=== PATIENT | female | born 1965 | race American Indian/Alaskan Native ===

== ENCOUNTER → 2017-01-22 | Outpatient (CLI) | payer OTHER ==
[~2017-01-22] MED LIST: ACET325 PO; ASPI325 PO; ASPI81CH PO; CIPR500 PO; CLIN300 PO; CRUTCH4 USE; CYCL10 PO; DICLO GEL1 EACH; DOCSEN PO; FURO100EL PO; FURO20 PO; GABA300 PO; GEMF600 PO; GLIP2.5ER PO; HYDACE5 PO; HYDACE7.5 PO; HYDMOR2 PO; IBAN2.5; IBUHYD; Lisinopril2.5 MG PO; METR500 PO; NAPR500EC PO; NITR100CA PO; OXYC5 PO; PERM5TC TOP; PIOG15 PO; POTCHL10ER PO; POTCHL20ER PO; PREG100 PO; PROM25 PO; Prilosec Otc20 MG PO; RXPROM25 PO; Senexon8.6 MG; Senna8.6 M1 PO; Vibramycin100 MG PO; WARF5 PO; [UNRECOGNIZED DRUG - REMARK]
[2017-01-22 14:34] LABS: Protein, Urine Quantitative 25.7 mg/dL (0.0-11.9)
== END ==
LOC: LAB SHORT 08:07
PROVIDERS: Internal Medicine Nephrology
DX: N18.2 Chronic kidney disease, stage 2 (mild) (principal); D63.1 Anemia in chronic kidney disease; N25.81 Secondary hyperparathyroidism of renal origin; E55.9 Vitamin D deficiency, unspecified; E78.00 Pure hypercholesterolemia, unspecified
CPT/HCPCS: 81050; 82043; 84156

== ENCOUNTER 2017-03-12 12:00 | Day surgery (SDC) | payer OTHER ==
[~2017-03-12] VITALS: Ht 175.3 cm; Wt 95.2 kg
[~2017-03-12 12:00] MED LIST changes: -GABA300 PO; -PROM25 PO
== END 2017-03-12 16:17 | disposition home or self-care (01) ==
LOC: ORSCSDS 12:00
PROVIDERS: Internal Medicine Gastroenterology
PROC: 0DB68ZX Excision of Stomach, Via Natural or Artificial Opening Endoscopic, Diagnostic (ICD-10-PCS; principal; 2017-03-12 13:45)
PROC: 0D757ZZ Dilation of Esophagus, Via Natural or Artificial Opening (ICD-10-PCS; principal; 2017-03-12 13:45)
PROC: 0DBL8ZX Excision of Transverse Colon, Via Natural or Artificial Opening Endoscopic, Diagnostic (ICD-10-PCS; principal; 2017-03-12 13:45)
PROC: 3E0H8GC Introduction of Other Therapeutic Substance into Lower GI, Via Natural or Artificial Opening Endoscopic (ICD-10-PCS; principal; 2017-03-12 13:45)
DX: Z86.010 Personal history of colon polyps (principal); D12.3 Benign neoplasm of transverse colon; R11.0 Nausea; R10.13 Epigastric pain; K29.70 Gastritis, unspecified, without bleeding; R13.14 Dysphagia, pharyngoesophageal phase; K57.30 Diverticulosis of large intestine without perforation or abscess without bleeding; E11.9 Type 2 diabetes mellitus without complications; R19.4 Change in bowel habit; Z79.899 Other long term (current) drug therapy; Z79.82 Long term (current) use of aspirin; F17.210 Nicotine dependence, cigarettes, uncomplicated
CPT/HCPCS: 82947; 87081; 88305; J1980; J2250; J7120

== ENCOUNTER 2017-05-30 15:19 | Inpatient (IN) | payer OTHER ==
[~2017-05-30] VITALS: Ht 175.3 cm; Wt 93.7 kg
[2017-05-30] MEDS ORDERED: GABA300 PO (15:28)
[2017-05-30 16:50] LABS: BASOPHILS ABSOLUTE AUTO 0.06 K/mm3 (0.00-0.23); BASOPHILS PERCENT AUTO 1 % (0-2); EOSINOPHILS ABSOLUTE AUTO 0.13 K/mm3 (0.00-0.68); EOSINOPHILS PERCENT AUTO 1 % (0-6); Hematocrit 48.3 % (33.0-51.0); Hemoglobin 15.4 g/dL (11.5-16.0); IMMATURE GRAN ABSOLUTE AUTO 0.08 K/mm3 (0.00-0.10); IMMATURE GRAN PERCENT AUTO 1 % (0-1); LYMPHOCYTES ABSOLUTE AUTO 5.61 K/mm3 (0.84-5.20); LYMPHOCYTES PERCENT AUTO 42 % (21-46); MONOCYTES ABSOLUTE AUTO 0.78 K/mm3 (0.16-1.47); MONOCYTES PERCENT AUTO 6 % (4-13); Mean Corpuscular HGB 29.2 pg (26.0-34.0); Mean Corpuscular HGB Conc 31.9 g/dL (31.5-36.5); Mean Corpuscular Volume 92 fL (80-100); Mean Platelet Volume 9.9 fL (9.1-12.4); NEUTROPHILS ABSOLUTE AUTO 6.58 K/mm3 (1.96-9.15); NEUTROPHILS PERCENT AUTO 50 % (41-73); Platelet Count 322 K/mm3 (150-400); RDW Coefficient Variation 13.8 % (11.7-14.2); Red Blood Cell Count 5.28 M/mm3 (3.80-5.20); White Blood Cell Count 13.24 K/mm3 (4.00-11.30)
[2017-05-30 17:15] LABS: Alanine Aminotransfer (ALT/SGP 28 U/L (12-78); Albumin, Blood 3.8 g/dL (3.4-5.0); Albumin/Globulin Ratio 0.8 (0.8-1.8); Alk Phos 79 U/L (50-136); Anion Gap 3 mmol/L (6-16); Aspartate Aminotrans (AST/SGOT 23 U/L (12-37); Bilirubin, Total 0.3 mg/dL (0.1-1.0); Blood Urea Nitrogen 12 mg/dL (8-24); Bun/Creatinine Ratio 18.6 (12.0-20.0); CO2, Blood 25 mmol/L (21-32); Calcium, Blood 9.2 mg/dL (8.5-10.1); Chloride, Blood 107 mmol/L (98-108); Creatinine, Blood 0.65 mg/dL (0.40-1.00); Globulin, Blood 4.7 g/dL (2.2-4.0); Glomerular Filtration Rate >60 (60-); Glucose, Blood 115 mg/dL (70-99); Potassium, Blood 3.6 mmol/L (3.5-5.5); Sodium, Blood 135 mmol/L (136-145); Total Protein, Blood 8.5 g/dL (6.4-8.2)
[2017-05-30 22:28] LABS: Source, Urine Clean Catch
[2017-05-30 22:34] LABS: Bilirubin, Urine Neg (Neg); Blood, Urine 2+ (Neg); Glucose Qualitative, Urine Neg (Neg); Ketones, Urine Neg (Neg); Leukocyte Esterase, Urine Neg (Neg); Nitrite, Urine Neg (Neg); Protein, Urine 3+ (Neg); Specific Gravity, Urine 1.015 (1.003-1.022); Urobilinogen, Urine NORM (Normal)
[2017-05-30 22:39] LABS: Appearance, Urine Clear (Clear); Color, Urine Yellow (P-Yellow); Red Blood Cells, Urine 0-2 /hpf (0-2); White Blood Cells, Urine 0-2 /hpf (0-5)
[2017-05-30 22:40] LABS: Bacteria Mod /hpf; Squamous Epithelial Cells Mod /hpf (Few)
[2017-05-30] MEDS ORDERED: CYCL10 PO (23:58)
[2017-05-31 04:49] LABS: BASOPHILS ABSOLUTE AUTO 0.06 K/mm3 (0.00-0.23); BASOPHILS PERCENT AUTO 1 % (0-2); EOSINOPHILS ABSOLUTE AUTO 0.14 K/mm3 (0.00-0.68); EOSINOPHILS PERCENT AUTO 1 % (0-6); Hematocrit 44.6 % (33.0-51.0); Hemoglobin 13.9 g/dL (11.5-16.0); IMMATURE GRAN ABSOLUTE AUTO 0.03 K/mm3 (0.00-0.10); IMMATURE GRAN PERCENT AUTO 0 % (0-1); LYMPHOCYTES ABSOLUTE AUTO 4.59 K/mm3 (0.84-5.20); LYMPHOCYTES PERCENT AUTO 41 % (21-46); MONOCYTES PERCENT AUTO 6 % (4-13); Mean Corpuscular HGB 29.3 pg (26.0-34.0); Mean Corpuscular HGB Conc 31.2 g/dL (31.5-36.5); Mean Corpuscular Volume 94 fL (80-100); Mean Platelet Volume 9.7 fL (9.1-12.4); NEUTROPHILS PERCENT AUTO 51 % (41-73); Platelet Count 289 K/mm3 (150-400); RDW Coefficient Variation 13.8 % (11.7-14.2); RDW Standard Deviation 47.8 fL (35.1-46.3); Red Blood Cell Count 4.74 M/mm3 (3.80-5.20); White Blood Cell Count 11.32 K/mm3 (4.00-11.30)
[2017-05-31 05:08] LABS: Alanine Aminotransfer (ALT/SGP 30 U/L (12-78); Albumin, Blood 3.2 g/dL (3.4-5.0); Albumin/Globulin Ratio 0.7 (0.8-1.8); Alk Phos 69 U/L (50-136); Anion Gap 5 mmol/L (6-16); Aspartate Aminotrans (AST/SGOT 18 U/L (12-37); Bilirubin, Total 0.3 mg/dL (0.1-1.0); Blood Urea Nitrogen 11 mg/dL (8-24); Bun/Creatinine Ratio 17.7 (12.0-20.0); CO2, Blood 29 mmol/L (21-32); Calcium, Blood 8.4 mg/dL (8.5-10.1); Chloride, Blood 106 mmol/L (98-108); Creatinine, Blood 0.62 mg/dL (0.40-1.00); Globulin, Blood 4.4 g/dL (2.2-4.0); Glomerular Filtration Rate >60 (60-); Glucose, Blood 120 mg/dL (70-99); Potassium, Blood 3.7 mmol/L (3.5-5.5); Sodium, Blood 140 mmol/L (136-145); Total Protein, Blood 7.6 g/dL (6.4-8.2); Triglycerides 258 mg/dL (30-160)
[2017-06-01 05:00] LABS: BASOPHILS ABSOLUTE AUTO 0.06 K/mm3 (0.00-0.23); BASOPHILS PERCENT AUTO 1 % (0-2); EOSINOPHILS PERCENT AUTO 1 % (0-6); Hematocrit 42.1 % (33.0-51.0); Hemoglobin 13.3 g/dL (11.5-16.0); IMMATURE GRAN ABSOLUTE AUTO 0.05 K/mm3 (0.00-0.10); IMMATURE GRAN PERCENT AUTO 1 % (0-1); LYMPHOCYTES ABSOLUTE AUTO 3.56 K/mm3 (0.84-5.20); LYMPHOCYTES PERCENT AUTO 36 % (21-46); MONOCYTES ABSOLUTE AUTO 0.62 K/mm3 (0.16-1.47); MONOCYTES PERCENT AUTO 6 % (4-13); Mean Corpuscular HGB 29.6 pg (26.0-34.0); Mean Corpuscular HGB Conc 31.6 g/dL (31.5-36.5); Mean Corpuscular Volume 94 fL (80-100); Mean Platelet Volume 9.7 fL (9.1-12.4); NEUTROPHILS ABSOLUTE AUTO 5.56 K/mm3 (1.96-9.15); NEUTROPHILS PERCENT AUTO 56 % (41-73); Platelet Count 277 K/mm3 (150-400); RDW Standard Deviation 48.2 fL (35.1-46.3); White Blood Cell Count 9.95 K/mm3 (4.00-11.30)
[2017-06-01 05:39] LABS: Alanine Aminotransfer (ALT/SGP 28 U/L (12-78); Albumin, Blood 3.1 g/dL (3.4-5.0); Albumin/Globulin Ratio 0.8 (0.8-1.8); Alk Phos 62 U/L (50-136); Anion Gap 6 mmol/L (6-16); Aspartate Aminotrans (AST/SGOT 20 U/L (12-37); Bilirubin, Total 0.4 mg/dL (0.1-1.0); Blood Urea Nitrogen 11 mg/dL (8-24); Bun/Creatinine Ratio 19.2 (12.0-20.0); CO2, Blood 28 mmol/L (21-32); Calcium, Blood 8.1 mg/dL (8.5-10.1); Chloride, Blood 105 mmol/L (98-108); Creatinine, Blood 0.57 mg/dL (0.40-1.00); Glomerular Filtration Rate >60 (60-); Glucose, Blood 124 mg/dL (70-99); Potassium, Blood 3.5 mmol/L (3.5-5.5); Sodium, Blood 139 mmol/L (136-145); Total Protein, Blood 7.1 g/dL (6.4-8.2)
[2017-06-01] MEDS ORDERED: PROM25 PO (14:28)
== END 2017-06-01 15:14 | disposition home or self-care (01) | DRG 440 ==
LOC: ER 15:19 → ERHOLD 21:00 → MEDS 23:20
PROVIDERS: Emergency Medicine; Family Medicine; Internal Medicine
DX: K85.90 Acute pancreatitis without necrosis or infection, unspecified (principal); E11.9 Type 2 diabetes mellitus without complications; K74.60 Unspecified cirrhosis of liver; M81.0 Age-related osteoporosis without current pathological fracture; K29.80 Duodenitis without bleeding; K21.9 Gastro-esophageal reflux disease without esophagitis; M79.7 Fibromyalgia; E78.5 Hyperlipidemia, unspecified; G89.29 Other chronic pain; M54.9 Dorsalgia, unspecified; E66.9 Obesity, unspecified; Z68.30 Body mass index [BMI] 30.0-30.9, adult; F17.200 Nicotine dependence, unspecified, uncomplicated; Z88.2 Allergy status to sulfonamides; Z88.8 Allergy status to other drugs, medicaments and biological substances; Z91.040 Latex allergy status; Z91.013 Allergy to seafood; Z79.82 Long term (current) use of aspirin; Z79.899 Other long term (current) drug therapy; Z86.718 Personal history of other venous thrombosis and embolism
CPT/HCPCS: 36415; 76705; 80053; 81001; 82947; 83690; 84478; 85025; 86140; 87086; C9113; J1170; J1650; J2405; J3010; J7030

== ENCOUNTER → 2018-03-24 | Outpatient (CLI) | payer OTHER ==
[~2018-03-24] MED LIST changes: +GABA300 PO; +PROM25 PO
[2018-03-24 20:12] LABS: Creatinine, Urine Random 67.3 mg/dL (27.00-270.00)
[2018-03-24 20:14] LABS: Microalb/Creat Ratio UR, Rand 361.07 mg/g (0.000-30.000)
== END ==
LOC: LAB SHORT 12:47 → LAB 12:47
PROVIDERS: Nurse Practitioner Family
DX: E11.51 Type 2 diabetes mellitus with diabetic peripheral angiopathy without gangrene (principal); E55.9 Vitamin D deficiency, unspecified
CPT/HCPCS: 82043; 82570

== ENCOUNTER 2019-01-24 10:45 | Emergency (ER) | payer OTHER ==
[~2019-01-24] VITALS: Ht 175.3 cm; Wt 88.0 kg
[2019-01-24] MEDS ORDERED: NAPR500 (11:08)
[2019-01-24] MEDS ORDERED: Ultram50 MG PO (12:56)
== END 2019-01-24 13:18 | disposition home or self-care (01) ==
LOC: ER 10:45
DX: M18.11 Unilateral primary osteoarthritis of first carpometacarpal joint, right hand (principal); E11.9 Type 2 diabetes mellitus without complications; F17.210 Nicotine dependence, cigarettes, uncomplicated; Z88.8 Allergy status to other drugs, medicaments and biological substances; Z91.09 Other allergy status, other than to drugs and biological substances; Z91.040 Latex allergy status; Z88.2 Allergy status to sulfonamides; Z91.013 Allergy to seafood; Z79.82 Long term (current) use of aspirin; Z86.718 Personal history of other venous thrombosis and embolism
CPT/HCPCS: 73120; 99283-25

== ENCOUNTER 2019-10-25 19:51 | Emergency (ER) | payer OTHER ==
[~2019-10-25] VITALS: Ht 175.3 cm; Wt 84.8 kg
[~2019-10-25 19:51] MED LIST changes: +NAPR500; +Ultram50 MG PO
[2019-10-26] MEDS ORDERED: Vibramycin100 MG PO (01:06)
[2019-10-26] MEDS ORDERED: Norco 5-325 Ta1 EACH PO (01:06)
[2019-10-26] MEDS ORDERED: ONDA4ODT MM (20:15)
== END 2019-10-26 01:26 | disposition home or self-care (01) ==
LOC: ER 19:51
DX: L02.411 Cutaneous abscess of right axilla (principal); M25.562 Pain in left knee; Z88.8 Allergy status to other drugs, medicaments and biological substances; Z91.09 Other allergy status, other than to drugs and biological substances; Z91.040 Latex allergy status; Z91.013 Allergy to seafood; Z79.82 Long term (current) use of aspirin; E11.9 Type 2 diabetes mellitus without complications; Z86.718 Personal history of other venous thrombosis and embolism; F17.210 Nicotine dependence, cigarettes, uncomplicated
CPT/HCPCS: 10060; 73562-LT; 99283-25; A9270

== ENCOUNTER 2019-10-26 19:00 | Emergency (ER) | payer OTHER ==
[~2019-10-26] VITALS: Ht 175.3 cm; Wt 90.3 kg
[~2019-10-26 19:00] MED LIST changes: +Norco 5-325 Ta1 EACH PO
[2019-10-26] MEDS ORDERED: ONDA4ODT MM (20:15)
== END 2019-10-26 20:20 | disposition home or self-care (01) ==
LOC: ER 19:00
DX: Z48.01 Encounter for change or removal of surgical wound dressing (principal); L02.411 Cutaneous abscess of right axilla; L03.111 Cellulitis of right axilla; E11.9 Type 2 diabetes mellitus without complications; F17.210 Nicotine dependence, cigarettes, uncomplicated; Z88.8 Allergy status to other drugs, medicaments and biological substances; Z91.041 Radiographic dye allergy status; Z91.040 Latex allergy status; Z88.2 Allergy status to sulfonamides; Z91.013 Allergy to seafood; Z88.6 Allergy status to analgesic agent; Z79.82 Long term (current) use of aspirin; Z86.718 Personal history of other venous thrombosis and embolism; Z79.899 Other long term (current) drug therapy
CPT/HCPCS: 99282; A9270-GY

== ENCOUNTER 2019-11-15 13:33 | Emergency (ER) | payer OTHER ==
[~2019-11-15] VITALS: Ht 175.3 cm; Wt 90.7 kg
[~2019-11-15 13:33] MED LIST changes: +ONDA4ODT MM
[2019-11-15] MEDS ORDERED: HYDR1TAB94 PO (15:50)
== END 2019-11-15 16:03 | disposition home or self-care (01) ==
LOC: ER 13:33
DX: M25.562 Pain in left knee (principal); F17.210 Nicotine dependence, cigarettes, uncomplicated; E11.9 Type 2 diabetes mellitus without complications; Z86.718 Personal history of other venous thrombosis and embolism; Z88.8 Allergy status to other drugs, medicaments and biological substances; Z91.041 Radiographic dye allergy status; Z91.040 Latex allergy status; Z88.2 Allergy status to sulfonamides; Z91.013 Allergy to seafood; Z79.82 Long term (current) use of aspirin; Z88.5 Allergy status to narcotic agent; Z79.899 Other long term (current) drug therapy
CPT/HCPCS: 29505; 99283-25

== ENCOUNTER 2020-09-08 10:08 | Day surgery (SDC) | payer OTHER ==
[~2020-09-08] VITALS: Ht 175.3 cm; Wt 88.1 kg
[~2020-09-08 10:08] MED LIST changes: +HYDR1TAB94 PO
[2020-09-08] MEDS ORDERED: IBUP400 PO (10:38)
[2020-09-08] MEDS ORDERED: OMEP20ER PO (10:41)
[2020-09-08] MEDS ORDERED: GLIP10ER PO (10:54)
--- NOTE | 2020-09-08 10:57 | NUR ---
Ambulatory in Day SurgeryPre-Op teaching done. Pt verbalizes understanding. Patient States Post-Procedure ride home has been arranged. History, Chart, Medications and Allergies reviewed before start of procedure.
[2020-09-08] MEDS ORDERED: PANT40 (11:22)
[2020-09-08] MEDS ORDERED: GLIP5ER PO (11:23)
--- NOTE | 2020-09-08 11:56 | NUR ---
09/08/20 1156 Marianela Donohue MONITOR INTACT WITH CONTINUOUS PULSE OXIMETRY AND INTERMITTENT BP, PRIOR TO START OF SEDATION.
--- NOTE | 2020-09-08 12:28 | NUR ---
TOLERATING PO FLUIDS.
--- NOTE | 2020-09-08 12:29 | NUR ---
Discharge instructions reviewed with patient. Patient verbalizes understanding. Copy given to patient to take home. Patient States Post-Procedure ride home has been arranged with her friend.
--- NOTE | 2020-09-08 12:40 | NUR ---
Patient up to Ambulate independently. Gait steady. Discharged via wheelchair to private car for ride home WITH FAMILY GIVING PT RIDE HOME
== END 2020-09-08 12:40 | disposition home or self-care (01) ==
LOC: ORSCMMR 10:08 → ORD 11:45 → ORSCMMR 12:40
PROVIDERS: Internal Medicine Gastroenterology
PROC: 0DJ08ZZ Inspection of Upper Intestinal Tract, Via Natural or Artificial Opening Endoscopic (ICD-10-PCS; principal; 2020-09-08 11:45)
DX: R10.13 Epigastric pain (principal); R10.10 Upper abdominal pain, unspecified; K59.00 Constipation, unspecified; G47.33 Obstructive sleep apnea (adult) (pediatric); F41.8 Other specified anxiety disorders; J44.9 Chronic obstructive pulmonary disease, unspecified; F17.210 Nicotine dependence, cigarettes, uncomplicated
CPT/HCPCS: 82947; J7120

== ENCOUNTER → 2023-11-26 | Outpatient (CLI) | payer OTHER ==
[~2023-11-26] MED LIST changes: +GLIP10ER PO; +GLIP5ER PO; +IBUP400 PO; +OMEP20ER PO; +PANT40
[2023-11-26 20:38] LABS: Creatinine, Urine Random 58.9 mg/dL (27.00-270.00); Microalb/Creat Ratio UR, Rand 224.109 mg/g (0.000-30.000)
== END ==
LOC: LAB SHORT 18:33 → LAB 18:33
PROVIDERS: Nurse Practitioner Family
DX: E11.9 Type 2 diabetes mellitus without complications (principal)
CPT/HCPCS: 82043; 82570

== ENCOUNTER 2024-11-11 15:28 | Inpatient (IN) | payer OTHER ==
[2024-11-11] VITALS (7 sets, daily range): BP systolic 82–98; BP diastolic 38–57
[~2024-11-11] VITALS: Ht 175.3 cm; Wt 82.3 kg
[2024-11-11 16:05] LABS: BASOPHILS ABSOLUTE AUTO 0.07 K/mm3 (0.00-0.23); BASOPHILS PERCENT AUTO 0 % (0-2); EOSINOPHILS ABSOLUTE AUTO 0.14 K/mm3 (0.00-0.68); EOSINOPHILS PERCENT AUTO 1 % (0-6); Hematocrit 34.0 % (33.0-51.0); Hemoglobin 11.3 g/dL (11.5-16.0); IMMATURE GRAN ABSOLUTE AUTO 0.20 K/mm3 (0.00-0.10); IMMATURE GRAN PERCENT AUTO 1 % (0-1); LYMPHOCYTES ABSOLUTE AUTO 3.35 K/mm3 (0.84-5.20); LYMPHOCYTES PERCENT AUTO 17 % (21-46); MONOCYTES ABSOLUTE AUTO 1.86 K/mm3 (0.16-1.47); MONOCYTES PERCENT AUTO 10 % (4-13); Mean Corpuscular HGB Conc 33.2 g/dL (31.5-36.5); Mean Corpuscular Volume 89 fL (80-100); NEUTROPHILS ABSOLUTE AUTO 13.92 K/mm3 (1.96-9.15); NEUTROPHILS PERCENT AUTO 71 % (41-73); NRBC ABSOLUTE 0.00 K/mm3 (0.00-0.02); NRBC Auto 0.0 /100 WBC (0.0-0.2); Platelet Count 214 K/mm3 (150-400); RDW Coefficient Variation 13.5 % (11.7-14.2); RDW Standard Deviation 44.7 fL (35.1-46.3)
[2024-11-11 16:30] LABS: Alanine Aminotransfer (ALT/SGP 27.0 U/L (12-78); Albumin, Blood 2.6 g/dL (3.4-5.0); Albumin/Globulin Ratio 0.7 (0.8-1.8); Anion Gap 7.0 mmol/L (3-11); Aspartate Aminotrans (AST/SGOT 31.0 U/L (12-37); Bilirubin, Total 0.6 mg/dL (0.1-1.0); Blood Urea Nitrogen 14.0 mg/dL (8-24); CO2, Blood 27.0 mmol/L (21-32); Calcium, Blood 8.0 mg/dL (8.5-10.1); Chloride, Blood 103.0 mmol/L (98-108); Creatinine, Blood 0.72 mg/dL (0.40-1.00); Globulin, Blood 3.8 g/dL (2.2-4.0); Glucose, Blood 152.0 mg/dL (70-99); Potassium, Blood 3.9 mmol/L (3.5-5.5); Sodium, Blood 133.0 mmol/L (136-145); Total Protein, Blood 6.4 g/dL (6.4-8.2)
[2024-11-11] MEDS ORDERED: FentaNYL Citrate 50 MCG/ML 2 ML Injection IV PRN ×4 (17:00→22:55)
[2024-11-11] MEDS ORDERED: Vancomycin (Pharmacy Consult) IV PRN (18:20)
[2024-11-11] MEDS ORDERED: NS 1,000 ML IV SCH (18:25)
[2024-11-11] MEDS ORDERED: Piperacillin/Tazobactam Sod 4.5 GM in NS 100 ML IV ONE (18:45)
[2024-11-11] MEDS ORDERED: Clindamycin 600mg in D5W 50 ML IV ONE (18:45)
[2024-11-11] MEDS ORDERED: HYDROmorphone HCl/Pf 1MG SYR IV ONE (19:10)
[2024-11-11] MEDS ORDERED: FentaNYL Citrate 50 MCG/ML 2 ML Injection ONE (22:16)
[2024-11-11] MEDS ORDERED: Dexamethasone Sod Phos 10 MG/ML 1ML VIAL ONE (22:21)
[2024-11-11] MEDS ORDERED: Ondansetron HCl 2 MG / ML 2ML Vial ONE (22:21)
[2024-11-11] MEDS ORDERED: Metoclopramide HCl 5MG / ML 2ML Vial ONE (22:21)
[2024-11-11] MEDS ORDERED: Albuterol 2.5 MG/3 ML VIAL INH PRN (22:30)
[2024-11-11] MEDS ORDERED: ePHEDrine Sulfate 50 MG/ML 1ML Injection IV PRN (22:30)
[2024-11-11] MEDS ORDERED: HYDROmorphone HCl/Pf 1MG SYR IV PRN ×2 (22:30)
[2024-11-11] MEDS ORDERED: Ondansetron HCl 2 MG / ML 2ML Vial IV PRN ×2 (22:30→22:55)
[2024-11-11] MEDS ORDERED: Bupivacaine 0.5% W/EPI 1:200000 SDV 30 ML Vial ONE (22:33)
[2024-11-11] MEDS ORDERED: HYDROmorphone HCl/Pf 1MG SYR ONE (22:40)
[2024-11-11] MEDS ORDERED: Sodium Hypochlorite 480 ML BTL (0.25%) ONE (22:44)
[2024-11-11] MEDS ORDERED: FLU VACC TS2025-26(6MOS UP)/PF 45 MCG/0.5 ML SYRINGE IM SCH (22:55)
[2024-11-11] MEDS ORDERED: NS 1,000 ML IV ONE (22:55)
[2024-11-11] MEDS ORDERED: Vancomycin (Pharmacy Consult) IV SCH (22:55)
[2024-11-12] VITALS (9 sets, daily range): BP systolic 92–129; BP diastolic 48–66
[2024-11-12] MEDS ORDERED: Piperacillin/Tazobactam Sod 4.5 GM in NS 100 ML IV SCH
[2024-11-12] MEDS ORDERED: NAPR500 PO (00:28)
[2024-11-12] MEDS ORDERED: OMEP20ER PO (00:30)
[2024-11-12] MEDS ORDERED: ATOR10 PO (00:31)
[2024-11-12] MEDS ORDERED: DERMACINRX FOL1 EAC2 PO (00:32)
[2024-11-12] MEDS ORDERED: FURO20 PO (00:35)
[2024-11-12] MEDS ORDERED: Norco 7.5-3251 EACH PO (00:36)
[2024-11-12] MEDS ORDERED: TIZA4 PO (00:37)
[2024-11-12 05:12] LABS: BASOPHILS ABSOLUTE AUTO 0.06 K/mm3 (0.00-0.23); BASOPHILS PERCENT AUTO 0 % (0-2); EOSINOPHILS ABSOLUTE AUTO 0.02 K/mm3 (0.00-0.68); EOSINOPHILS PERCENT AUTO 0 % (0-6); Hematocrit 35.1 % (33.0-51.0); Hemoglobin 11.2 g/dL (11.5-16.0); IMMATURE GRAN ABSOLUTE AUTO 0.17 K/mm3 (0.00-0.10); IMMATURE GRAN PERCENT AUTO 1 % (0-1); LYMPHOCYTES ABSOLUTE AUTO 1.48 K/mm3 (0.84-5.20); LYMPHOCYTES PERCENT AUTO 10 % (21-46); MONOCYTES ABSOLUTE AUTO 0.49 K/mm3 (0.16-1.47); MONOCYTES PERCENT AUTO 3 % (4-13); Mean Corpuscular HGB Conc 31.9 g/dL (31.5-36.5); Mean Corpuscular Volume 92 fL (80-100); NEUTROPHILS ABSOLUTE AUTO 12.39 K/mm3 (1.96-9.15); NEUTROPHILS PERCENT AUTO 85 % (41-73); NRBC ABSOLUTE 0.00 K/mm3 (0.00-0.02); NRBC Auto 0.0 /100 WBC (0.0-0.2); Platelet Count 210 K/mm3 (150-400); RDW Coefficient Variation 13.5 % (11.7-14.2); RDW Standard Deviation 46.3 fL (35.1-46.3)
[2024-11-12 05:37] LABS: Alanine Aminotransfer (ALT/SGP 31.0 U/L (12-78); Albumin, Blood 2.4 g/dL (3.4-5.0); Albumin/Globulin Ratio 0.6 (0.8-1.8); Anion Gap 7.0 mmol/L (3-11); Aspartate Aminotrans (AST/SGOT 20.0 U/L (12-37); Bilirubin, Total 0.6 mg/dL (0.1-1.0); Blood Urea Nitrogen 13.0 mg/dL (8-24); CO2, Blood 26.0 mmol/L (21-32); Calcium, Blood 7.8 mg/dL (8.5-10.1); Chloride, Blood 108.0 mmol/L (98-108); Creatinine, Blood 0.85 mg/dL (0.40-1.00); Globulin, Blood 4.0 g/dL (2.2-4.0); Glucose, Blood 255.0 mg/dL (70-99); Potassium, Blood 4.2 mmol/L (3.5-5.5); Sodium, Blood 137.0 mmol/L (136-145); Total Protein, Blood 6.4 g/dL (6.4-8.2)
[2024-11-12] MEDS ORDERED: Insulin Human Lispro 100 Units/ML 3ML Syringe SC SCH (07:30)
--- NOTE | 2024-11-12 07:30 | NUR ---
SHIFT SUMMARY POD 1-I&D R LABIA. RESPONDS TO VERBAL STIMULI, ANSWERS QUESTIONS APPROPRIATE & THEN FALLS BACK ASLEEP. R LABIA VERY FIRM, RED, W/GENET DRAIN IN PLACE. CHANGED GAUZE & JHONY PAD THIS AM @0645, MOD SATURATED W/BROWNISH SEROUS DRAINAGE. REPORTS 8/10 PAIN BUT THEN FALLS ASLEEP & SLEPT SOUNDLY T/O NIGHT. PT HAD DIFFICULTY MAINTAINING SATS T/O NIGHT. CAME TO FLOOR ON 4L O2, PT DENIES WEARING O2 @HOME, HAS HX ABY & STATES SHE DOESNT WEAR A CPAP & DOESNT WANT TO WEAR ONE HERE. INCREASED O2 TO 5L & PT SPO2 STILL 85% ON 5L, INFORMED RT & THEY PLACED PT ON 11L W/OXIMASK. SPO2 >95% THEREFORE TITRATED TO 3L ON OXIMASK, PT DOES DESAT TO 84-86% WHEN SHE REMOVES MASK. PT DENIES DYSPNEA. E/U RESP. BS COARSE IN BASES & EXP WHEEZES NOTED IN UPPER LOBES. REST OF VSS. TELE NSR HR 70'S. DE LEON PATENT & DRAINING ORANGE URINE. CALL LIGHT IN REACH.
[2024-11-12] MEDS ORDERED: NS 250 ML IV PRN (15:00)
--- NOTE | 2024-11-12 18:40 | NUR ---
SUMMARY: POD1 I&D R LABIA. A/O, VSS. PT MORE AWAKE TONIGHT. TELE STABLE. GAUZE AT JHONY AREA CHANGED X1. SMALL AMT DRAINAGE, SITE IS PINK AND FIRM. PT UP TO COMMODE SBA FOR BM. MEDICATED PER EMAR FOR PAIN. ANTBIOTICS INFUSED. NO ACUTE CONCERNS.
[2024-11-13] VITALS (16 sets, daily range): BP systolic 110–145; BP diastolic 46–123
--- NOTE | 2024-11-13 05:30 | NUR ---
SHIFT SUMMARY PT S/P RIGHT LABIAL I&D. PT TO HAVE A SECOND I&D TODAY. MINIMAL DRAINAGE. PAIN MANAGED PER EMAR. IV ANTIBIOTICS PER ORDERS. PT NPO SINCE MIDNIGHT. PLAN OF CARE REMAINS UNCHANGED. BED IN LOWEST POSITION, CALL LIGHT WITHIN REACH.
[2024-11-13 06:15] LABS: BASOPHILS ABSOLUTE AUTO 0.06 K/mm3 (0.00-0.23); BASOPHILS PERCENT AUTO 0 % (0-2); EOSINOPHILS ABSOLUTE AUTO 0.05 K/mm3 (0.00-0.68); EOSINOPHILS PERCENT AUTO 0 % (0-6); Hematocrit 35.0 % (33.0-51.0); Hemoglobin 11.5 g/dL (11.5-16.0); IMMATURE GRAN ABSOLUTE AUTO 0.15 K/mm3 (0.00-0.10); IMMATURE GRAN PERCENT AUTO 1 % (0-1); LYMPHOCYTES ABSOLUTE AUTO 3.79 K/mm3 (0.84-5.20); LYMPHOCYTES PERCENT AUTO 20 % (21-46); MONOCYTES ABSOLUTE AUTO 0.79 K/mm3 (0.16-1.47); MONOCYTES PERCENT AUTO 4 % (4-13); Mean Corpuscular HGB Conc 32.9 g/dL (31.5-36.5); Mean Corpuscular Volume 90 fL (80-100); NEUTROPHILS ABSOLUTE AUTO 14.44 K/mm3 (1.96-9.15); NEUTROPHILS PERCENT AUTO 75 % (41-73); NRBC ABSOLUTE 0.00 K/mm3 (0.00-0.02); NRBC Auto 0.0 /100 WBC (0.0-0.2); Platelet Count 262 K/mm3 (150-400); RDW Coefficient Variation 13.7 % (11.7-14.2); RDW Standard Deviation 45.1 fL (35.1-46.3)
--- NOTE | 2024-11-13 06:30 | NUR ---
BRADYCARDIA CALL FROM PIN DRAFTING MACHINE TENDER THIS AM THAT PT BRADYCARDIC HR RANGING 37-40. PT RESTING, WITH EYES CLOSED CHEST RISE AND FALL. DR. KENNEDY CALLED AND NOTIFIED. HE GAVE NO ORDERS AT THIS TIME. STATES TO NOTIFY DAYSALFT RN FOR FOLLOW UP.
[2024-11-13 07:17] LABS: Anion Gap 8.0 mmol/L (3-11); Blood Urea Nitrogen 12.0 mg/dL (8-24); CO2, Blood 24.0 mmol/L (21-32); Calcium, Blood 8.7 mg/dL (8.5-10.1); Chloride, Blood 111.0 mmol/L (98-108); Creatinine, Blood 0.76 mg/dL (0.40-1.00); Glucose, Blood 165.0 mg/dL (70-99); Potassium, Blood 3.7 mmol/L (3.5-5.5); Sodium, Blood 139.0 mmol/L (136-145)
--- NOTE | 2024-11-13 07:22 | NUR ---
BRADYCARDIA DAYSHIFT ION SUE MADE AWARE OF BRADYCARDIA AND WILL FOLLOW UP.
[2024-11-13] MEDS ORDERED: FentaNYL Citrate 50 MCG/ML 2 ML Injection ONE (08:29)
--- NOTE | 2024-11-13 08:34 | NUR ---
PT TO OR VIA STRETCHER
[2024-11-13] MEDS ORDERED: Albuterol 2.5 MG/3 ML VIAL INH PRN (08:40)
[2024-11-13] MEDS ORDERED: FentaNYL Citrate 50 MCG/ML 2 ML Injection IV PRN ×2 (08:40)
[2024-11-13] MEDS ORDERED: Midazolam HCl 1MG / ML 2ML Vial ONE (08:43)
[2024-11-13] MEDS ORDERED: HYDROmorphone HCl/Pf 1MG SYR IV PRN (08:45)
[2024-11-13] MEDS ORDERED: Ondansetron HCl 2 MG / ML 2ML Vial IV PRN (08:45)
--- NOTE | 2024-11-13 08:49 | NUR ---
PT TO OR AT ABOUT 0830
[2024-11-13] MEDS ORDERED: Ondansetron HCl 2 MG / ML 2ML Vial ONE (09:02)
[2024-11-13] MEDS ORDERED: ePHEDrine Sulfate 50 MG/ML 1ML Injection ONE (09:04)
[2024-11-13] MEDS ORDERED: Bupivacaine 0.5% W/EPI 1:200000 SDV 30 ML Vial ONE (09:08)
--- NOTE | 2024-11-13 09:36 | NUR ---
11/13/24 0936 Norma Connolly PT HAD NEW IV 20G STARTED TO LEFT FA AFTER INDUCTION. WOUND VAC PLACED TO RIGHT LABIA.
[2024-11-13] MEDS ORDERED: HYDROmorphone HCl/Pf 1MG SYR ONE (10:08)
--- NOTE | 2024-11-13 10:42 | NUR ---
pt to room 211. wound vac in place r labia. chang catheter in place draining clear yellow urine. wound vac with leak. post op vs started. plan for medicating for pain, then attempting to solve leak. will continue to monitor.
--- NOTE | 2024-11-13 13:45 | NUR ---
PT HAVING LOOSE STOOLS. UP TO BSC WITH TWO ASSIST TO MANAGE EQUIPMENT. ATTENDS PLACED. LABIAL WOUND VAC DRESSING STILL INTACT WITH LEAK PRESENT. PLAN TO ATTEMPT TO FIX WHEN TITLE INSURANCE EXAMINER IS BACK FROM LUNCH. PT BACK TO BED. WILL CONTINUE TO MONITOR.
--- NOTE | 2024-11-13 14:42 | NUR ---
AFTER MANIPULATION OF WOUND VAC LABIAL DRESSING BY SPORTS CENTRE MANAGER HALEY AND MYSELF, DRESSING FULLY COMPRESSED, DELIVERING THERAPY, AND NOT ALARMING. WILL CONTINUE TO MONITOR.
[2024-11-13 14:56] LABS: Vancomycin, Trough 18.9 ug/mL (5.0-10.0)
[2024-11-14 03:30] VITALS: BP 125/60
[2024-11-14 04:36] LABS: BASOPHILS ABSOLUTE AUTO 0.09 K/mm3 (0.00-0.23); BASOPHILS PERCENT AUTO 1 % (0-2); EOSINOPHILS ABSOLUTE AUTO 0.27 K/mm3 (0.00-0.68); EOSINOPHILS PERCENT AUTO 2 % (0-6); Hematocrit 33.5 % (33.0-51.0); Hemoglobin 11.0 g/dL (11.5-16.0); IMMATURE GRAN ABSOLUTE AUTO 0.17 K/mm3 (0.00-0.10); IMMATURE GRAN PERCENT AUTO 1 % (0-1); LYMPHOCYTES ABSOLUTE AUTO 4.03 K/mm3 (0.84-5.20); LYMPHOCYTES PERCENT AUTO 33 % (21-46); MONOCYTES ABSOLUTE AUTO 0.68 K/mm3 (0.16-1.47); MONOCYTES PERCENT AUTO 6 % (4-13); Mean Corpuscular HGB Conc 32.8 g/dL (31.5-36.5); Mean Corpuscular Volume 89 fL (80-100); NEUTROPHILS ABSOLUTE AUTO 7.00 K/mm3 (1.96-9.15); NEUTROPHILS PERCENT AUTO 57 % (41-73); NRBC ABSOLUTE 0.00 K/mm3 (0.00-0.02); NRBC Auto 0.0 /100 WBC (0.0-0.2); Platelet Count 250 K/mm3 (150-400); RDW Coefficient Variation 13.5 % (11.7-14.2); RDW Standard Deviation 44.5 fL (35.1-46.3)
[2024-11-14 05:09] LABS: Anion Gap 8.0 mmol/L (3-11); Blood Urea Nitrogen 15.0 mg/dL (8-24); CO2, Blood 26.0 mmol/L (21-32); Calcium, Blood 8.3 mg/dL (8.5-10.1); Chloride, Blood 110.0 mmol/L (98-108); Creatinine, Blood 0.81 mg/dL (0.40-1.00); Glucose, Blood 154.0 mg/dL (70-99); Potassium, Blood 3.6 mmol/L (3.5-5.5); Sodium, Blood 140.0 mmol/L (136-145)
[2024-11-14 07:18] VITALS: BP 136/59
--- NOTE | 2024-11-14 07:49 | NUR ---
SHIFT SUMMARY AOX4. POD 1-I&D R LABIA & WOUND VAC PLACED. SCANT AMOUNT SANGUINOUS DRAINAGE IN WOUND VAC NOTED. PT REPORTS 6/10 PAIN TO JHONY AREA, PAIN MANAGED WELL W/2MG PO DILAUDID. LABIA & GROIN NOTED TO BE VISUALLY SWOLLEN, TENDER TO TOUCH, RED. NOTED NEW REDNESS FROM PELVIS AREA TO ANTERIOR HIP, OUTLINED W/SKIN MARKER & HASNT GONE OUTSIDE JUAN. NO LOOSE BM THIS SHIFT. DE LEON PATENT & DRAINING CLEAR YELLOW URINE. VSS. SPO2 >90% ON 3L O2. TELE NSR @75. CALL LIGHT IN REACH.
--- NOTE | 2024-11-14 08:58 | NUR ---
STOOL SAMPLE SENT PER ORDERS.
[2024-11-14 10:55] LABS: Campylobacter Sp Not Detected (NOT DETECT); E. Coli O157 Not Detected (NOT DETECT); Enteroaggregative E. coli-EAEC Not Detected (NOT DETECT); Enteropathogenic E. coli-EPEC Not Detected (NOT DETECT); Enterotoxigenic E. coli-ETEC Not Detected (NOT DETECT); Salmonella Sp Not Detected (NOT DETECT); Shiga Toxin-prod E. coli-STEC Not Detected (NOT DETECT); Shigella/Enteroin E. coli-EIEC Not Detected (NOT DETECT); Vibrio Sp Not Detected (NOT DETECT)
--- NOTE | 2024-11-14 14:21 | NUR ---
DISCHARGE INSTRUCTION REVIEWED. STATED UNDERSTANDING. IV DC'D INTACT. DISCHARGED TO POV VIA W/C.
[2024-11-14 16:24] VITALS: BP 149/64
[2024-11-14 19:38] VITALS: BP 142/53
[2024-11-14] MEDS ORDERED: Insulin Glargine 100 Unit/ML 3 ML SYR SC SCH (21:00)
--- NOTE | 2024-11-15 04:49 | NUR ---
SHIFT SUMMARY NO ACUTE EVENTS OVERNIGHT. PT REMAINS ON 3L O2 VIA NC OVERNIGHT. DE LEON DRAINING TO COLLECTION BAG. WOUND VAC TO LABIA WOUND REMAINS INTACT WITH NO ALARMS OVERNIGHT. PT C/O RESTLESSNESS AT APPROXIMATELY 0000; [employer] AIDED IN BEDBATH, HAIR WASH; PT VERBALIZED RELAXATION AFTERWARDS. PT REFUSED HS DOSE OF LANTUS.
--- NOTE | 2024-11-15 05:10 | NUR ---
RN TO ROOM TO ADMINISTER ANTIBIOTICS. PT AWAKENS TO VERBAL STIMULI WITH SOME TOUCH TO SHOULDER BY RN. AFTER PT AWAKE, PT REQUESTS PAIN MEDICATIONS. PT OXYGEN SATURATION AT 90%. PT OXYGEN INCREASED TO 4L VIA NC; PT REPORTS SLEEP APNEA BUT DOES NOT WEAR CPAP. RN DISCUSSES RISKS OF MORE NARCOTIC PAIN MEDICATION AND RESPIRATORY DISFUNCTION. PT VERBALIZES UNDERSTANDING.
[2024-11-15 05:16] VITALS: BP 142/64
[2024-11-15 07:37] VITALS: BP 135/70
[2024-11-15 09:59] LABS: BASOPHILS ABSOLUTE AUTO 0.12 K/mm3 (0.00-0.23); BASOPHILS PERCENT AUTO 1 % (0-2); EOSINOPHILS ABSOLUTE AUTO 0.29 K/mm3 (0.00-0.68); EOSINOPHILS PERCENT AUTO 2 % (0-6); Hematocrit 39.0 % (33.0-51.0); Hemoglobin 12.6 g/dL (11.5-16.0); IMMATURE GRAN ABSOLUTE AUTO 0.45 K/mm3 (0.00-0.10); IMMATURE GRAN PERCENT AUTO 4 % (0-1); LYMPHOCYTES ABSOLUTE AUTO 4.00 K/mm3 (0.84-5.20); LYMPHOCYTES PERCENT AUTO 34 % (21-46); MONOCYTES ABSOLUTE AUTO 0.67 K/mm3 (0.16-1.47); MONOCYTES PERCENT AUTO 6 % (4-13); Mean Corpuscular HGB Conc 32.3 g/dL (31.5-36.5); Mean Corpuscular Volume 89 fL (80-100); NEUTROPHILS ABSOLUTE AUTO 6.37 K/mm3 (1.96-9.15); NEUTROPHILS PERCENT AUTO 54 % (41-73); NRBC ABSOLUTE 0.02 K/mm3 (0.00-0.02); NRBC Auto 0.2 /100 WBC (0.0-0.2); Platelet Count 292 K/mm3 (150-400); RDW Coefficient Variation 13.1 % (11.7-14.2); RDW Standard Deviation 43.3 fL (35.1-46.3)
--- NOTE | 2024-11-15 10:35 | NUR ---
Pt. is awake and welcomes my visit. Pt. is pleasant. Pt. verbalizes a hope that she will be discharged home in a day or so. Normalize the Pt. Experience. Considered matters of ashish and belief. Listen with empathy and a calming presence. Pt. verbalizes that she has other family in the [place] area. Prayed with the Pt. Pt. verbalized gratitude for the s[iritual care visit.
[2024-11-15 10:45] LABS: Anion Gap 5.0 mmol/L (3-11); Blood Urea Nitrogen 10.0 mg/dL (8-24); CO2, Blood 29.0 mmol/L (21-32); Calcium, Blood 8.6 mg/dL (8.5-10.1); Chloride, Blood 106.0 mmol/L (98-108); Creatinine, Blood 0.78 mg/dL (0.40-1.00); Glucose, Blood 164.0 mg/dL (70-99); Potassium, Blood 3.4 mmol/L (3.5-5.5); Sodium, Blood 137.0 mmol/L (136-145)
[2024-11-15 14:26] VITALS: BP 152/67
--- NOTE | 2024-11-15 16:52 | NUR ---
SUMMARY ASSUMED CARE OF PT @0700. VSS. AXO4. PAINFUL - MEDS PER EMAR FOR R LABIAL PAIN. ON 3LNC TO START SHIFT- HAVE ATTEMPTED TO TITRATE TO RA UNSUCCESFULLY- SO PT ON 1LNC WITH CONTINOUS SPO2 MONITORING OF 93-95%. PT HAS HAD 2 LOOSE BM'S TODAY - REQUESTING MEDS - AWAITING DR PHONE CALL. DE LEON PATENT AND DRAINING YELLOW URINE. WOUND VAC TO R LABIAL AREA - PATENT. PT BEING REPOSITOONED NEEDED - TOLERATING WELL. BLOOD SUGARS STABLE. TOLERATING MEALS. FAMILY UPDATED ON CARE WHILE IN ROOM. OTHERWISE - PT RESTING OFF AND ON. CALL LIGHT WITHIN REACH.
[2024-11-15 18:57] VITALS: BP 141/72
--- NOTE | 2024-11-15 20:27 | NUR ---
ASSUMED CARE AT APPROX 1900 PT IS A&OX4 ABLE TO MAKE NEEDS KNOWN. PT IS LAYING ON HER LEFT SIDE W/ PILLOW BETWEEN HER LEGS. DE LEON DRAINING TO GRAVITY, FREE OF KINKS, WOUND VAC IN PLACE, DRESSING C/D/I. PT REPORTING PAIN ON ASSESSMENT. PT REFUSED PM LONG ACTING INSULIN, TOOK OTHER MEDICATIONS W/OUT ISSUE. BED IN LOW, CALL LIGHT IN REACH.
[2024-11-16] MEDS ORDERED: Heparin Sodium,Porcine 5,000 UNIT/0.5 ML SDV SC SCH
[2024-11-16 04:56] VITALS: BP 143/65
[2024-11-16 05:07] LABS: BASOPHILS ABSOLUTE AUTO 0.13 K/mm3 (0.00-0.23); BASOPHILS PERCENT AUTO 1 % (0-2); EOSINOPHILS ABSOLUTE AUTO 0.33 K/mm3 (0.00-0.68); EOSINOPHILS PERCENT AUTO 3 % (0-6); Hematocrit 38.0 % (33.0-51.0); Hemoglobin 12.6 g/dL (11.5-16.0); IMMATURE GRAN ABSOLUTE AUTO 0.55 K/mm3 (0.00-0.10); IMMATURE GRAN PERCENT AUTO 4 % (0-1); LYMPHOCYTES ABSOLUTE AUTO 4.62 K/mm3 (0.84-5.20); LYMPHOCYTES PERCENT AUTO 35 % (21-46); MONOCYTES ABSOLUTE AUTO 0.73 K/mm3 (0.16-1.47); MONOCYTES PERCENT AUTO 6 % (4-13); Mean Corpuscular HGB Conc 33.2 g/dL (31.5-36.5); Mean Corpuscular Volume 89 fL (80-100); NEUTROPHILS ABSOLUTE AUTO 6.98 K/mm3 (1.96-9.15); NEUTROPHILS PERCENT AUTO 52 % (41-73); NRBC ABSOLUTE 0.00 K/mm3 (0.00-0.02); NRBC Auto 0.0 /100 WBC (0.0-0.2); Platelet Count 321 K/mm3 (150-400); RDW Coefficient Variation 13.2 % (11.7-14.2); RDW Standard Deviation 43.5 fL (35.1-46.3)
--- NOTE | 2024-11-16 05:15 | NUR ---
NOC SHIFT SUMMARY PT REMAINS A&OX4 ABLE TO MAKE NEEDS KNOWN. DE LEON CATH IN PLACE DRAINING TO GRAVITY FREE OF KINKS. CATH CARE PROVIDED BY MACHINE SCALLOP CUTTER. NO ACUTE CHANGES FOR THIS PAITENT. MEDICATED PER EMAR W/ PRN'S, PT HAVING 8/10 PAIN TOWARDS THE END OF THE 4 HOUR JUAN. BED IN LOW CALL LIGHT IN REACH. CARE CONTINUES, WILL REPORT TO ONCOMING RN.
[2024-11-16 05:27] LABS: Anion Gap 7.0 mmol/L (3-11); Blood Urea Nitrogen 10.0 mg/dL (8-24); CO2, Blood 27.0 mmol/L (21-32); Calcium, Blood 8.3 mg/dL (8.5-10.1); Chloride, Blood 107.0 mmol/L (98-108); Creatinine, Blood 0.75 mg/dL (0.40-1.00); Glucose, Blood 160.0 mg/dL (70-99); Potassium, Blood 3.5 mmol/L (3.5-5.5); Sodium, Blood 137.0 mmol/L (136-145)
[2024-11-16 07:26] VITALS: BP 129/68
[2024-11-16 09:55] LABS: C DIFFICILE DNA Duplicate (Negative)
[2024-11-16 14:47] VITALS: BP 148/63
--- NOTE | 2024-11-16 16:17 | NUR ---
Pt. is awake in her bed when she welcmoes my visit. Pt. is pleasant and verbalizes an expectation to be discharged to a rehab facility. Seek to normalize the Pt. experience. Pt. displayed evidence of understanding and agreement. Pt. verbalized gratitude for the spiritual care visit an welcomed this shake packer to return.
--- NOTE | 2024-11-16 19:28 | NUR ---
SHIFT SUMMARY PATIENT AOX3 WITH INTERMITTENT CONFUSION HE DOESNT KNOW THE DATE. HE DENIES CP OR SOB. HE DOES COMPLAIN OF PAIN WITH REPOSITIONING BUT REFUSES PAIN MEDICATION. HE STATES HE HAS NO PAIN WHEN HE IS NOT MOVING.
--- NOTE | 2024-11-16 19:35 | NUR ---
SHIFT SUMMARY PATIENT AOX4 ABLE TO MAKE NEEDS KNOWN DENIES CP OR SOB. SHE IS TOLERATING HER MEALS AND HAD BM IN THE BEDPAN. WOUND VAC IN PLACE NO ISSUES. PATIENT REQUESTING PAIN MEDS Q4H. VITLALS ARE STABLE. SHE PLANS ON HAVING PROCEDURE TOMORROW.
[2024-11-16 19:42] VITALS: BP 147/64
[2024-11-17] VITALS (21 sets, daily range): BP systolic 112–153; BP diastolic 57–77
--- NOTE | 2024-11-17 04:27 | NUR ---
SHIFT SUMMARY NO ACUTE CHANGES, CONTINUES TO BE A/OX4 WITH VSS. IS ABLE TO MAKE NEEDS KNOWN AND USES CALL LIGHT. WOUND VAC IN PLACE WITH DRESSING COMPRESSED TO RIGHT LABIA/GROIN, SS FLUID NOTED IN CANISTER. PAIN MANAGED PER EMAR AND REPOSITIONING. ABX INFUSED PER ORDERS. DE LEON TO GRAVITY DRAIN, IS PATENT WITH YELLOW URINE IN CATH BAG, STAT LOCK IN PLACE. NPO SINCE MIDNIGHT TO PLAN FOR REPEAT I&D TODAY. PT CURRENTLY RESTING IN BED WITH CALL LIGHT IN REACH, RESP EVEN AND UNLABORED. WILL GIVE REPORT TO ONCOMING RN.
--- NOTE | 2024-11-17 10:00 | NUR ---
PT TO DAY SURGERY
[2024-11-17] MEDS ORDERED: FentaNYL Citrate 50 MCG/ML 2 ML Injection ONE ×3 (10:20→12:08)
--- NOTE | 2024-11-17 10:20 | NUR ---
PRE OP NOTE PT A&OX4, BREATHING 3LO2 VIA NC, PT PAIN IS AT BASELINE. PT TO DSU IN BED WITH WOUND VAC TO JHONY AREA, DE LEON CATHETER DRAINING CLEAR YELLOW URINE. IV TO L FA FLUSHED AND RUNNING LR TO GRAVITY. Patient confirms NPO status and agrees with scheduled surgery. Pre-Op teaching done. Pt verbalizes understanding.
[2024-11-17] MEDS ORDERED: Dexamethasone Sod Phos 10 MG/ML 1ML VIAL ONE (11:04)
[2024-11-17] MEDS ORDERED: Ondansetron HCl 2 MG / ML 2ML Vial ONE (11:04)
[2024-11-17] MEDS ORDERED: HYDROmorphone HCl/Pf 1MG SYR ONE (12:08)
--- NOTE | 2024-11-17 12:59 | NUR ---
ARRIVAL TO SURGICAL FLOOR TO FLOOR VIA HOSP BED. A&O x4, VSS, HRR. R LABIA w/MAY DRAIN, SMALL AMOUNT SS FLUID. INCISION w/MEDIPORE DRESSING, C/D/I. CURRENTLY ON 3L O2 NC w/SATS >93%. DE LEON CATH IN PLACE, DRAINING CLEAR YELLOW URINE TO GRAVITY. DENIES N/V, SMALL SNACKS & WATER WITHIN REACH. CALL LIGHT WITHIN REACH.
--- NOTE | 2024-11-17 16:19 | NUR ---
SHIFT SUMMARY ADMITTED ON 11/12 FOR LABIAL MASS. 11/13 RIGHT PARTIAL VULVECTOMY. TO OR TODAY FOR I&D. WOUND VAC REMOVED, MAY DRAIN NOW IN PLACE w/SS DRAINAGE. INCISION SITE w/MEDIPORE DRESSING, C/D/I. A&O x4, VSS, HRR. CURRENTLY ON 3L O2 NC w/SATS >93% - STATES IS BASELINE. DE LEON CATH IN PLACE, DRAINING CLEAR YELLOW URINE TO GRAVITY. PAIN CONTROLLED WELL PER EMAR. TOLERATING REGULAR DIET WELL, NO NAUSEA/VOMITING. CURRENTLY RESTING IN BED. CALL LIGHT WITHIN REACH.
[2024-11-18 03:41] VITALS: BP 131/66
--- NOTE | 2024-11-18 04:21 | NUR ---
SHIFT SUMMARY R PARTIAL VULVECTOMY ON 11/13/24. POD 1 I&D R LABIA. MAY DRAIN IN PLACE W/SS DRAINAGE. MEDIPORE DRESSING C/D/I. PAIN MANAGED WELL PER EMAR. PT RECEIVING 3L O2 VIA NC WITH CONTINUOUS PULSE OX IN PLACE SPO2 94%. DE LEON PATENT AND DRAINING TO GRAVITY. PT TOLERATING DIET WELL AND DENIES N/V. PT RESTING IN BED WITH EVEN UNLABORED BREATHING VISUALIZED. CALL LIGHT WITHIN REACH.
[2024-11-18 06:03] LABS: BASOPHILS ABSOLUTE AUTO 0.08 K/mm3 (0.00-0.23); BASOPHILS PERCENT AUTO 1 % (0-2); EOSINOPHILS ABSOLUTE AUTO 0.10 K/mm3 (0.00-0.68); EOSINOPHILS PERCENT AUTO 1 % (0-6); Hematocrit 38.1 % (33.0-51.0); Hemoglobin 12.3 g/dL (11.5-16.0); IMMATURE GRAN ABSOLUTE AUTO 0.31 K/mm3 (0.00-0.10); IMMATURE GRAN PERCENT AUTO 2 % (0-1); LYMPHOCYTES ABSOLUTE AUTO 4.23 K/mm3 (0.84-5.20); LYMPHOCYTES PERCENT AUTO 28 % (21-46); MONOCYTES ABSOLUTE AUTO 0.79 K/mm3 (0.16-1.47); MONOCYTES PERCENT AUTO 5 % (4-13); Mean Corpuscular HGB Conc 32.3 g/dL (31.5-36.5); Mean Corpuscular Volume 91 fL (80-100); NEUTROPHILS ABSOLUTE AUTO 9.77 K/mm3 (1.96-9.15); NEUTROPHILS PERCENT AUTO 64 % (41-73); NRBC ABSOLUTE 0.00 K/mm3 (0.00-0.02); NRBC Auto 0.0 /100 WBC (0.0-0.2); Platelet Count 378 K/mm3 (150-400); RDW Coefficient Variation 13.2 % (11.7-14.2); RDW Standard Deviation 43.0 fL (35.1-46.3)
[2024-11-18 06:31] LABS: Anion Gap 8.0 mmol/L (3-11); Blood Urea Nitrogen 13.0 mg/dL (8-24); CO2, Blood 25.0 mmol/L (21-32); Calcium, Blood 8.7 mg/dL (8.5-10.1); Chloride, Blood 108.0 mmol/L (98-108); Creatinine, Blood 0.78 mg/dL (0.40-1.00); Glucose, Blood 159.0 mg/dL (70-99); Potassium, Blood 3.5 mmol/L (3.5-5.5); Sodium, Blood 137.0 mmol/L (136-145)
[2024-11-18 07:18] VITALS: BP 127/73
[2024-11-18 15:27] VITALS: BP 138/64
--- NOTE | 2024-11-18 18:04 | NUR ---
SHIFT SUMMARY PT IS A/OX4. TOLERATING PO INTAKE, DENIES N/V. PAIN MANAGED PER EMAR. PT SBA TO BTHRM, FOLLEY REMOVED. PT IS VOIDING. MAY DRAINING SANGUINEOUS DRAINAGE, MINIMAL OUTPUT. DRESSING C/D/I. ABLE TO MAKE NEEDS KNOWN, CALL LIGHT IN REACH. BED IN LOWEST IN POSITION.
[2024-11-18 19:13] VITALS: BP 129/57
[2024-11-19 03:53] VITALS: BP 156/88
--- NOTE | 2024-11-19 04:40 | NUR ---
COOKING TEACHER SUMMARY PT IS POD 1 FOR 2ND I&D OF LABIAL WOUND. MAY DRAIN WITH MINIMAL SS DRAINAGE NOTED. DRESSING TO AREA C/D/I ASIDE FROM A SMALL SPOT OF DRAINAGE FROM YESTERDAY. PAIN HAS BEEN WELL MANAGED WITH PO DILAUDID 2MG. PT HAS BEEN UP TO THE BSC TO VOID SEVERAL TIMES THROUGH THE NIGHT. VSS, WCTM.
[2024-11-19 05:02] LABS: Hematocrit 40.5 % (33.0-51.0); Hemoglobin 13.3 g/dL (11.5-16.0); Mean Corpuscular HGB Conc 32.8 g/dL (31.5-36.5); Mean Corpuscular Volume 90 fL (80-100); NRBC ABSOLUTE 0.00 K/mm3 (0.00-0.02); NRBC Auto 0.0 /100 WBC (0.0-0.2); Platelet Count 401 K/mm3 (150-400); RDW Coefficient Variation 13.2 % (11.7-14.2); RDW Standard Deviation 43.9 fL (35.1-46.3)
[2024-11-19 05:24] LABS: Anion Gap 7.0 mmol/L (3-11); Blood Urea Nitrogen 12.0 mg/dL (8-24); CO2, Blood 26.0 mmol/L (21-32); Calcium, Blood 8.9 mg/dL (8.5-10.1); Chloride, Blood 109.0 mmol/L (98-108); Creatinine, Blood 0.78 mg/dL (0.40-1.00); Glucose, Blood 110.0 mg/dL (70-99); Potassium, Blood 3.7 mmol/L (3.5-5.5); Sodium, Blood 138.0 mmol/L (136-145)
[2024-11-19 07:19] VITALS: BP 139/64
[2024-11-19] MEDS ORDERED: GlipiZIDE 5 MG TabCR PO SCH (08:00)
--- NOTE | 2024-11-19 13:47 | NUR ---
LATE ENTRY: RN CHANGED PT'S DRESSING. XEROFOAM REMAINS IN PLACE, RN CHANGED MEDIPORE DRESSINGS DUE TO SOILING FROM BM. GENET DRAIN REMAINS IN PLACE, COVERED WITH A CLEAR CHG DRESSING DRAINING SEROSANGUINOUS FLUID. RIGHT VULVA IS SWOLLEN, RED. STERISTRIPS WITH SCANT AMOUNT OF DRAINAGE NOTED. RN REPOSITIONED PT WITH PILLOW TO RELIEVE PRESSURE ON HER COCCYX AND APPLIED BARRIER CREAM PT REPORTS PAIN TO HER SACRUM.
[2024-11-19 14:24] VITALS: BP 128/69
[2024-11-19] MEDS ORDERED: Lactobacil 2-S.Thermo-Bifido 1 1 Cap PO SCH (16:00)
[2024-11-19 19:45] VITALS: BP 130/57
--- NOTE | 2024-11-19 19:47 | NUR ---
PT IS POD 2 S/P I&D OF ABCESS ON VAGINAL LABIA. SHE HAS A MAY DRAIN IN PLACE, DRAINING 10ML OF SANGUINOUS FLUID THIS SHIFT. DRESSING IN PLACE WITH XEROFOAM, AND MEDIPORE DRESSINGS CHANGED DUE TO BM. PT HAS DEVELOPED DIARRHEA THIS SHIFT. PRN IMMODIUM GIVEN. PT REPORTS PAIN CONTROLLED WITH PO DILAUDID Q4 HOURS. OXYGEN 3LPM VIA NC PLACED WHENEVER PT FALLS ASLEEP. AT BASELINE SHE IS ROOM AIR AT ALL TIMES. 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 PLAN: 2-3 MORE DAYS OF IV ANTIBIOTICS.
[2024-11-20 04:26] VITALS: BP 137/65
--- NOTE | 2024-11-20 04:42 | NUR ---
SAFETY COORDINATOR SUMMARY NO ACUTE CHANGES THIS SHIFT. PT AAOX4 AND PLEASANT. INDEPENDENT TO THE BSC. DRESSING TO LABIA C/D/I AND MAY DRAIN WITH MINIMAL SS DRAINAGE NOTED. PT HAVING SOME SOFT UNFORMED STOOLS BEFORE BED, STARTED ON PROBIOTICS AND IMODIUM EARLIER. PAIN CONTINUES TO BE WELL MANAGED WITH PO DILAUDID 2MG. IV ZOSYN Q6 PER ORDERS. VSS, WCTM.
[2024-11-20 07:25] VITALS: BP 130/71
[2024-11-20 09:16] LABS: Hematocrit 40.1 % (33.0-51.0); Hemoglobin 13.0 g/dL (11.5-16.0); Mean Corpuscular HGB Conc 32.4 g/dL (31.5-36.5); Mean Corpuscular Volume 92 fL (80-100); NRBC ABSOLUTE 0.00 K/mm3 (0.00-0.02); NRBC Auto 0.0 /100 WBC (0.0-0.2); Platelet Count 363 K/mm3 (150-400); RDW Coefficient Variation 13.4 % (11.7-14.2); RDW Standard Deviation 45.2 fL (35.1-46.3)
[2024-11-20] MEDS ORDERED: VISBIOME 112.51 EACH PO (11:38)
[2024-11-20] MEDS ORDERED: Nicoderm Cq1 EAC1 TOP (11:38)
[2024-11-20] MEDS ORDERED: AMOCLA875 PO (11:39)
--- NOTE | 2024-11-20 13:52 | NUR ---
PATIENT LEFT VIA WC WITH FAMILY. VERBALIZED UNDERSTANDING OF DISCHARGE INSTRUCTIONS INCLUDING MEDS, WOUND CARE , MAY DRAIN INSTRUCTIONS AND FOLLOW UP INSTRUCTIONS. IV REMOVED , PATIENT DENIES PAIN
== END 2024-11-20 12:34 | disposition home health service (06) | DRG 854 ==
LOC: ER 15:28 → SURS 22:51
PROVIDERS: Internal Medicine; Student in an Organized Health Care Education/Training Program; Surgery; ADMIT Internal Medicine
PROC: 0JBB0ZZ Excision of Perineum Subcutaneous Tissue and Fascia, Open Approach (ICD-10-PCS; 2024-11-11)
PROC: 3E03329 Introduction of Other Anti-infective into Peripheral Vein, Percutaneous Approach (ICD-10-PCS; 2024-11-11)
PROC: 0T9B70Z Drainage of Bladder with Drainage Device, Via Natural or Artificial Opening (ICD-10-PCS; 2024-11-11)
PROC: 0UBM0ZZ Excision of Vulva, Open Approach (ICD-10-PCS; principal; 2024-11-13 09:00)
PROC: 0UQM0ZZ Repair Vulva, Open Approach (ICD-10-PCS; 2024-11-17)
DX: A40.1 Sepsis due to streptococcus, group B (principal); E87.1 Hypo-osmolality and hyponatremia; N76.4 Abscess of vulva; I96 Gangrene, not elsewhere classified; L02.215 Cutaneous abscess of perineum; L03.315 Cellulitis of perineum; A41.59 Other Gram-negative sepsis; I10 Essential (primary) hypertension; G25.81 Restless legs syndrome; K21.9 Gastro-esophageal reflux disease without esophagitis; E66.9 Obesity, unspecified; E78.5 Hyperlipidemia, unspecified; E11.65 Type 2 diabetes mellitus with hyperglycemia; D64.9 Anemia, unspecified; E88.09 Other disorders of plasma-protein metabolism, not elsewhere classified; N76.2 Acute vulvitis; N76.82 Fournier disease of vagina and vulva; M19.90 Unspecified osteoarthritis, unspecified site; G47.33 Obstructive sleep apnea (adult) (pediatric); M81.0 Age-related osteoporosis without current pathological fracture; F17.200 Nicotine dependence, unspecified, uncomplicated; G89.29 Other chronic pain; M54.9 Dorsalgia, unspecified; Z88.8 Allergy status to other drugs, medicaments and biological substances; Z88.6 Allergy status to analgesic agent; Z88.2 Allergy status to sulfonamides; Z91.040 Latex allergy status; Z86.718 Personal history of other venous thrombosis and embolism; Z79.82 Long term (current) use of aspirin; Z79.84 Long term (current) use of oral hypoglycemic drugs; Z79.891 Long term (current) use of opiate analgesic; Z79.1 Long term (current) use of non-steroidal anti-inflammatories (NSAID); Z68.26 Body mass index [BMI] 26.0-26.9, adult
CPT/HCPCS: 36415; 72192; 80048; 80053; 80202; 82947; 83605; 83880; 85025; 85027; 85651; 86140; 87040; 87070; 87075; 87076; 87147; 87185; 87205; 87507; 93005; 93010; 94762; 96361; 96365; 96367; 96375; 99285-25; A6590; A9270; J1100; J1171; J1644; J1815; J2250; J2405; J2543; J2704; J2765; J3010; J3373; J7030; J7040; J7050